=== PATIENT | female | born 1995 | race Caucasian/White ===

== ENCOUNTER 2020-10-22 06:10 | Inpatient (IN) | payer OTHER ==
[2020-10-22 06:45] VITALS: BMI 28.9
[2020-10-22 07:23] LABS: BASO % 0.5 % (0-2.0); HEMOGLOBIN 12.4 GM/dL (10.7-15.3); LYMPH % 34.2 % (8-40); MCH 28.6 pg (25.7-33.7); MCHC 33.4 g/dl (32.0-36.0); MEAN CELL VOLUME 85.5 fl (80-96); MEAN PLT VOLUME 9.7 fl (7.5-11.1); MONO % 9.5 % (3.8-10.2); NEUT % 54.8 % (42.8-82.8); PLATELET COUNT 183 K/MM3 (134-434); RBC 4.33 M/mm3 (3.60-5.2); RDW 14.6 % (11.6-15.6); WHITE BLOOD COUNT 7.6 K/mm3 (4.0-10.0)
[2020-10-22 07:38] LABS: INR 0.99 (0.83-1.09)
[2020-10-22 07:41] LABS: ACTIVATED PTT 28.3 SECONDS (25.2-36.5)
[2020-10-22 07:42] LABS: POTASSIUM 3.8 mmol/L (3.5-5.1)
[2020-10-22 07:43] LABS: BLOOD UREA NITROGEN 7.3 mg/dL (7-18); CALCIUM 8.5 mg/dL (8.5-10.1)
[2020-10-22 07:47] LABS: CREATININE 0.6 mg/dL (0.55-1.3)
[2020-10-22] MEDS ORDERED: PCA PUMP NR ONE (07:55)
[2020-10-22] MEDS ORDERED: FENTANYL/BUPIVACAINE/NS/PF - PCEA - 50 ML DISP.SYRIN EP ONE ×2 (07:55→12:39)
[2020-10-22] MEDS ORDERED: ELECTROLYTE-148 SOLN 1,000 ML IV SCH (08:00)
[2020-10-22] MEDS ORDERED: NALOXONE HCL 0.4 MG/ML VIAL IVPUSH PRN (08:04)
[2020-10-22] MEDS ORDERED: BUPIVACAINE HCL/PF 0.25% (2.5MG/ML) 10 ML VIAL ONE (08:05)
[2020-10-22] MEDS ORDERED: AMPICILLIN - 2 GM in SODIUM CHLORIDE 100 ML IVPB ONE (08:12)
[2020-10-22] MEDS ORDERED: AMPICILLIN SODIUM 2 GM VIAL ONE (08:12)
[2020-10-22] MEDS ORDERED: FENTANYL/BUPIVACAINE/NS/PF - PCEA - 50 ML DISP.SYRIN EP SCH (08:15)
[2020-10-22 08:41] LABS: HIV INTERPRETATION NEGATIVE (NEGATIVE)
[2020-10-22] MEDS ORDERED: OXYTOCIN 30 UNITS in 0.9% NS 30 UNIT/500 ML INFUS.BAG IVPB SCH (11:15)
[2020-10-22] MEDS ORDERED: AMPICILLIN SODIUM 1 GM VIAL ONE (12:22)
[2020-10-22] MEDS: AMPICILLIN - 1 GM in SODIUM CHLORIDE 100 ML IVPB SCH ×2 (12:25→16:40)
[2020-10-22] MEDS ORDERED: OXYTOCIN 20 UNITS in 0.9% NS 20 UNIT/1,000 ML INFUS.BAG IV ONE (14:14)
[2020-10-22] MEDS ORDERED: BENZOCAINE 28 GM HEMORRHOIDAL OINTMENT TP PRN (15:02)
[2020-10-22] MEDS ORDERED: WITCH HAZEL 50% (TUCKS) 40 PAD/JAR PAD TP PRN (15:02)
[2020-10-22] MEDS ORDERED: BISACODYL 10 MG SUPP.RECT RC PRN (15:02)
[2020-10-22] MEDS ORDERED: BENZOCAINE 20% 57 GM BOTTLE TP PRN (15:02)
[2020-10-22] MEDS ORDERED: METHYLERGONOVINE MALEATE 0.2 MG/1 ML AMP IM PRN (15:02)
[2020-10-22] MEDS ORDERED: OXYTOCIN 20 UNITS in 0.9% NS 20 UNIT/1,000 ML INFUS.BAG IV SCH (15:15)
[2020-10-22] MEDS: ACETAMINOPHEN 325 MG TABLET (FP) PO PRN (17:07)
[2020-10-22] MEDS: IBUPROFEN 600 MG TABLET (FP) PO PRN (17:07)
[2020-10-23] MEDS: ACETAMINOPHEN 325 MG TABLET (FP) PO PRN ×2 (06:09→12:24)
[2020-10-23] MEDS: IBUPROFEN 600 MG TABLET (FP) PO PRN ×2 (06:10→12:24)
[2020-10-23] MEDS: AMPICILLIN - 1 GM in SODIUM CHLORIDE 100 ML IVPB SCH (07:12)
[2020-10-23 09:14] LABS: BASO % 0.2 % (0-2.0); EOS % 1.1 % (0-4.5); HEMATOCRIT 30.3 % (32.4-45.2); HEMOGLOBIN 10.1 GM/dL (10.7-15.3); LYMPH % 27.4 % (8-40); MCH 28.6 pg (25.7-33.7); MCHC 33.4 g/dl (32.0-36.0); MEAN CELL VOLUME 85.6 fl (80-96); MEAN PLT VOLUME 10.3 fl (7.5-11.1); MONO % 8.1 % (3.8-10.2); NEUT % 63.2 % (42.8-82.8); PLATELET COUNT 160 K/MM3 (134-434); RBC 3.54 M/mm3 (3.60-5.2); RDW 14.3 % (11.6-15.6); WHITE BLOOD COUNT 11.8 K/mm3 (4.0-10.0)
[2020-10-23] MEDS: PRENATAL VITAMINS W/ FOLIC ACID TABLET (FP) PO SCH (09:40)
[2020-10-23] MEDS ORDERED: SENNOSIDES/DOCUSATE COMBO (SENNA PLUS) TABLET (UD) PO PRN (22:00)
[2020-10-24] MEDS: ACETAMINOPHEN 325 MG TABLET (FP) PO PRN (10:28)
[2020-10-24] MEDS: IBUPROFEN 600 MG TABLET (FP) PO PRN (10:29)
[2020-10-24] MEDS: PRENATAL VITAMINS W/ FOLIC ACID TABLET (FP) PO SCH (10:30)
[2020-10-24 12:17] VITALS: BP 100/60; PULSE 89; TEMP 98
[2020-10-25 11:50] LABS: POC NITRAZINE POS
== END 2020-10-24 12:50 | disposition home or self-care (01) | DRG 560 ==
LOC: JLDR 06:10 → J3W 17:00
PROVIDERS: ADMIT Student in an Organized Health Care Education/Training Program; ATTEND Student in an Organized Health Care Education/Training Program
PROC: 10E0XZZ Delivery of Products of Conception, External Approach (ICD-10-PCS; principal; 2020-10-22)
PROC: 0HQ9XZZ Repair Perineum Skin, External Approach (ICD-10-PCS; 2020-10-22)
PROC: 0W8NXZZ Division of Female Perineum, External Approach (ICD-10-PCS; 2020-10-22)
DX: O70.0 First degree perineal laceration during delivery (principal); Z3A.39 39 weeks gestation of pregnancy; Z37.0 Single live birth
CPT/HCPCS: 36415; 59409; 80048; 83986-QW; 85025; 85610; 85730; 86780; 86850; 86900; 86901; 87389; C9803; U0003